=== PATIENT | male | born 1990 | race Caucasian/White ===

== ENCOUNTER 2017-02-28 19:06 | Emergency (ER) | payer SELFPAY | END 2017-02-28 23:07 | disposition home or self-care (01) | LOC: CFTX 19:06 → CED 19:06 → CFTX 23:03 | DX: H60.92 Unspecified otitis externa, left ear (principal); Z95.5 Presence of coronary angioplasty implant and graft; Z90.49 Acquired absence of other specified parts of digestive tract | CPT/HCPCS: 99282 ==